=== PATIENT | male | born 1945 | race Caucasian/White ===

== ENCOUNTER 2017-04-09 15:30 | Emergency (ER) | payer MEDICARE, OTHER ==
[2017-04-09] MEDS ORDERED: ONDANSETRON HCL/PF 2 MG/ML VIAL IV ONE (15:41)
[2017-04-09] MEDS ORDERED: ONDANSETRON HCL/PF 2 MG/ML VIAL ONE (15:45)
[2017-04-09] MEDS ORDERED: SUCRALFATE 1 G/10 ML UDC PO ONE (15:47)
[2017-04-09] MEDS ORDERED: LIDOCAINE HCL 20 ML UDC PO ONE (15:47)
[2017-04-09] MEDS ORDERED: MAG HYDROX/ALUMINUM HYD/SIMETH 30 ML UDC PO ONE (15:47)
--- NOTE | 2017-04-09 15:54 | ERNOTE ---
Abdominal HPI - Narrative Date of Service: 04/09/17 - General Chief Complaint: Abdominal Pain Time Seen by Provider: 04/09/17 15:32 Source: patient Exam Limitations: no limitations - Immun/Allergies/Home Medications Immunizatons: IMMUNIZATION HX Immunizations Up to Date Yes History of Influenza Vaccine No Hx Pneumococcal Vaccination No Allergies/Adverse Reactions: Allergies No Known Allergies Allergy (Verified 04/09/17 15:38) Home Medications: HOME MEDICATIONS Benazepril/Hydrochlorothiazide [Lotensin Hct 20-12.5 mg Tablet] 1 each PO DAILY 03/06/16 [Last Taken Unknown] - History of Present Illness Narrative: Pt. comes in with c/o abdominal pain for 2 days that radiates to the L upper abdomen and into his L flank for 5 hours. Pt. states that he has had some mild nausea today and had one episode of bloody emesis just prior to arrival. Pt. denies any dark or bloody stool, CP, diarrhea, SOB, dysuria, fatigue, or dizziness/lightheadedness. Pt. states that he had a kidney stone a year ago and that this feels similar but denies that there was any abdominal pain at that time. Review of Systems - Review of Systems Constitutional: Present: no symptoms reported. Absent: recent illness, fever, chills, weakness, fatigue, malaise EYE: Present: no symptoms reported ENT: Present: no symptoms reported Respiratory: Present: no symptoms reported. Absent: shortness of breath, cough , wheezing Cardiology: Present: no symptoms reported. Absent: chest pain, palpitations, edema Gastrointestinal/Abdominal: Present: nausea, vomiting, abdominal pain. Absent: diarrhea, constipation Genitourinary: Present: pain - L flank. Absent: dysuria, hematuria, decreased urinary output Musculoskeletal: Present: back pain - L flank. Absent: neck pain, joint pain, joint swelling Skin: Present: no symptoms reported. Absent: rash, change in hair/nails Neurological: Present: no symptoms reported. Absent: headache, dizziness/light- headedness, numbness, tingling All Other Systems: All systems neg except as marked - Patient's Past Medical History Patient History - Medical: Other - kidney stones Patient History - Cardiac/Respiratory: Hypertension, CPAP/BiPAP Home Use, Sleep Apnea Patient History - Cancer: Skin Patient History - Surgical Procedures: Colonoscopy, Other, Hernia Repair Patient History - Other: None - Family History Mother Family History - Medical: History Unknown Family History - Cardiac/Respiratory: History Unknown Father Family History - Medical: , History Unknown Family History - Cardiac/Respiratory: History Unknown Brother Family History - Medical: History Unknown Family History - Cardiac/Respiratory: History Unknown Sister Family History - Medical: History Unknown Family History - Cardiac/Respiratory: History Unknown - Social History Living Situations: spouse Abuse History: No History of abuse Psych History: No pertinent hx Smoking Status: Former smoker Have you smoked in the past 12 months: No Do you dip or chew tobacco: No Alcohol Use: rarely Drug Use: none - Immunizations Immunizations Up to Date: Yes Hx Pneumococcal Vaccination: No History of Influenza Vaccine: No Physical Exam - Physical Exam General Appearance: Present: wd/wn, alert, no apparent distress Head Exam: Present: normal inspection, no evidence of injury Eye Exam: Normal inspection: bilateral, PERRL: bilateral, EOMI: bilateral Ears, Nose, Throat: Present: normal ENT inspection, normal pharynx Neck: Present: normal inspection, nontender. Absent: lymphadenopathy (R), lymphadenopathy (L) Respiratory: Present: no respiratory distress, normal breath sounds, no accessory muscle use, chest nontender, lungs clear Cardiovascular/Chest: Present: regular rate, rhythm, no murmur, normal peripheral pulses Gastrointestinal/Abdominal: Present: normal bowel sounds, soft, no organomegaly , distended. Absent: rebound, Hammer sign, mass, hernia, hepatomegaly Back Exam: Present: normal inspection, normal range of motion, no CVA tenderness , no vertebral tenderness Extremity Exam: Present: normal inspection, non-tender, normal range of motion, no edema Neurological Exam: Present: alert, oriented, normal mood/affect, no motor/ sensory deficits Skin Exam: Present: normal color, warm/dry. Absent: pallor, skin rash ED Progress - Date and Time Seen: Date and Time: 04/09/17 17:49 [facility] urologist out of town so called [facility] urologist Dr Pendleton who said because they are not collections clerk for us he is unable to give any advice as to whether to admit the pt. here or send home, or send to the ER at [facility] so he cannot accept transfer of pt . 04/09/17 18:51 Called [facility] Urologist and he recommends to either admit here and assess whether or not pt. needs to be transferred if he gets worse or to send him to the ER at [facility] if we are unable to care for him here 04/09/17 19:[address] Henriquez and she recommends sending pt to [facility] at this time as pt. has high potential for complications. Discussed with Dr Carter [facility] ER and he accepts pt. for admission. - Results and Orders Patient's Lab Results:: I have reviewed the patient's lab results. Results and Orders: Abnormal Lab Results 04/09/17 04/09/17 04/09/17 Range/Units 15:51 15:51 16:10 WBC 13.3 H (4.0-10.5) K/mm3 RBC 4.58 L (4.7-6.0) M/mm3 Hct 41.6 L (42.0-52.0) % Immature Gran # (Auto) 0.06 H (0.000-0.0310) K/mm3 Neutrophils % 76.8 H (42-75.0) % Lymphocytes % 12.1 L (20-51) % Monocytes % 10.2 H (0.0-9) % Neutrophils # 10.2 H (1.3-6.0) K/mm3 Monocytes # 1.4 H (0.0-1.0) k/mm3 BUN 28 H (6-23) mg/dL Creatinine 1.60 H D (0.4-1.4) mg/dL Est GFR (Non-Af Amer) 45 L D (60-130) mL/min Random Glucose 157 H (70-110) mg/dL Alkaline Phosphatase 45 L (50-170) U/L Urine Blood 25 H (NEGATIVE) /ul - Vital Signs Patient's Vital Signs:: I have reviewed the patient's vital signs. Vital Signs: Vital Signs 04/09/17 15:33 Temperature 36.8 C Pulse Rate 60 Respiratory 17 Rate Blood Pressure 188/90 O2 Sat by Pulse 98 Oximetry - CT/Ultrasound CT/Ultrasound Narrative: CT stone protocol positive for L ureter stone of 7mm with perinephric stranding and hydroureter and hydronephrosis. - Progress/Reassessment Chief Complaint: Abdominal Pain Progress:: Improved Departure Clinical Impression: Pyelonephritis, acute, Flank pain, acute, Ureteral stone with hydronephrosis, PUD (peptic ulcer disease) - Departure Disposition: [facility] Condition: Serious Referrals: Dalton Orourke DO [Primary Care Provider] -
[2017-04-09 15:58] LABS: Hematocrit 41.6 % (42.0-52.0); Hemoglobin 13.9 gm/dL (13.5-18.0); Mean Cell Volume 90.8 fl (78-100); Mean Corpuscular Hemoglobin 30.3 pg (27-31); Mean Corpuscular Hgb Conc 33.4 g/dl (32-36); Mean Platelet Volume 9.2 fl (6.0-9.5); Neutrophil # 10.2 K/mm3 (1.3-6.0); Neutrophil % 76.8 % (42-75.0); Platelet Count 258 K/mm3 (150-450); Red Blood Count 4.58 M/mm3 (4.7-6.0); Red Cell Distribution Width 12.6 % (11.5-14.0); White Blood Count 13.3 K/mm3 (4.0-10.5)
[2017-04-09 16:14] LABS: Urine Appearance Clear; Urine Bacteria None Seen; Urine Bilirubin Negative (NEGATIVE); Urine Blood 25 /ul (NEGATIVE); Urine Color Yellow; Urine Ketone Negative (NEGATIVE); Urine Nitrite Negative (NEGATIVE); Urine Protein Negative (NEGATIVE); Urine RBC 0-5 /hpf (0-5); Urine Urobilinogen Normal (NORMAL); Urine WBC 0-5 /hpf (0-5)
[2017-04-09 16:14] LABS: Albumin * 3.6 gm/dl (3.4-5.0); Anion Gap 13.4 mmol/L (6.8-13.8); BUN/Creatinine Ratio 17.5 (9.0-21.6); Bilirubin, Total 0.5 mg/dL (0.0-1.1); Ca. Corrected For Albumin 9.1 mg/dL (8.4-10.2); Calcium * 9.1 mg/dL (7.9-10.9); Carbon Dioxide 28.9 mmol/L (24-32.6); Potassium 4.3 mmol/L (3.4-4.6); Total Protein 8.1 gm/dL (6.2-8.2)
[2017-04-09] MEDS ORDERED: MORPHINE SULFATE 2 MG/ML DISP.SYRIN IV ONE (17:23)
[2017-04-09] MEDS ORDERED: NORMAL SALINE 1,000 ML IV ONE (17:25)
[2017-04-09] MEDS ORDERED: MORPHINE SULFATE 2 MG/ML DISP.SYRIN ONE (17:31)
[2017-04-09 20:08] VITALS: BP 138/57
== END 2017-04-09 19:31 | disposition short-term general hospital (02) ==
LOC: ER 15:30
DX: N10 Acute pyelonephritis (principal); N13.2 Hydronephrosis with renal and ureteral calculous obstruction; K27.9 Peptic ulcer, site unspecified, unspecified as acute or chronic, without hemorrhage or perforation; R10.9 Unspecified abdominal pain; Z87.442 Personal history of urinary calculi; Z85.828 Personal history of other malignant neoplasm of skin; Z87.891 Personal history of nicotine dependence; I10 Essential (primary) hypertension
CPT/HCPCS: 36415; 74176; 80053; 81001; 82150; 83690; 85025; 96374; 96375; 99285; J2405